=== PATIENT | male | born 1970 | race Caucasian/White ===

== ENCOUNTER 2021-10-04 07:09 | Outpatient (CLI) | payer BC, SELFPAY ==
--- NOTE | ~2021-10-04 | XR_ITS ---
XR hand BI arthritis min 3V DATE: 10/04/2021 07:43 INDICATION: Osteoarthritis TECHNIQUE: 4 views of each hand COMPARISON: None FINDINGS: No fracture or dislocation, periosteal reaction or bone destruction, erosive change or pedro drocalcinosis. Joint spaces are relatively preserved. IMPRESSION: No significant abnormality Reviewed, dictated and finalized at location A. IMPRESSION: No significant abnormality
--- NOTE | ~2021-10-04 | XR_ITS ---
XR sacroiliac joints min 3V DATE: 10/04/2021 07:43 INDICATION: Psoriasis. Arthritis. TECHNIQUE: AP and bilateral oblique views of the sacroiliac joints COMPARISON: None FINDINGS: Single joints are normal, without evidence of erosive change or ankylosis. No fracture or d islocation or any significant degenerative change at the sacroiliac joints is noted. IMPRESSION: Negative Reviewed, dictated and finalized at [facility]. Reviewed, dictated and finalized at location A. IMPRESSION: Negative
--- NOTE | ~2021-10-04 | XR_ITS ---
XR lumbar spine min 4V DATE: 10/04/2021 07:43 INDICATION: Psoriasis; back pain TECHNIQUE: AP, lateral, coned lateral lumbosacral views COMPARISON: None FINDINGS: There is degenerative spurring of the lower thoracic spine. There is mild spurring of the lumbar spine. No fracture or bone destruction. The lumbar pedicles are intact. The sacroiliac joints are normal. There are a couple calcified probable gallstones at right upper quadrant. IMPRESSION: Degenerative changes of the thoracic and lumbar spine Cholelithiasis Reviewed, dictated and finalized at location A.
[2021-10-09 13:13] LABS: Anti Cyclic Citrullinated Pept <16 Units (<20)
[2021-10-10 14:44] LABS: ANCA Screen Negative (Negative); Myeloperoxidase Ab <1.0 AI (<1.0); Proteinase-3 Ab <1.0 AI (<1.0); S cerevisiae Ab (IgA) 7.8 U (<=20.0)
[2021-10-10 18:20] LABS: HLA B27 Negative (Negative)
== END 2021-10-04 07:10 | disposition home or self-care (01) ==
PROVIDERS: Visit Provider Internal Medicine
DX: M19.90 Unspecified osteoarthritis, unspecified site (principal); L40.9 Psoriasis, unspecified; Z71.89 Other specified counseling; Z76.89 Persons encountering health services in other specified circumstances; K80.20 Calculus of gallbladder without cholecystitis without obstruction; M51.34 Other intervertebral disc degeneration, thoracic region; M51.36 Other intervertebral disc degeneration, lumbar region
CPT/HCPCS: 36415; 72110; 72202; 73130; 86036; 86200; 86671; 86812